=== PATIENT | female | born 1985 | race Caucasian/White ===

== ENCOUNTER 2017-06-24 14:31 | Emergency (ER) | payer MEDICAID ==
[2017-06-24 15:23] LABS: BASOPHILS 0.1 % (0-2); HEMATOCRIT 41.9 % (36.0-48.0); HEMOGLOBIN 13.9 g/dL (12-16); IMMATURE GRANULOCYTES 0.1 % (0-5); LYMPHOCYTES 30.4 % (15-50); MCH 30.9 pg (26.0-34.0); MCHC 33.2 g/dL (31.0-37.0); MCV 93.1 fL (80.0-100.0); MEAN PLATELET VOLUME 11.6 fL (7.4-10.4); MONOCYTES 10.5 % (2-11); NEUTROPHILS 56.9 % (40-80); PLATELET COUNT 255 10x3/uL (130-400); RDW 13.8 % (11.5-14.5); WBC 7.5 10x3/uL (4.8-10.8)
[2017-06-24 15:33] LABS: APPEARANCE CLEAR (CLEAR); BILIRUBIN NEGATIVE (NEGATIVE); COLOR YELLOW (YELLOW); GLUCOSE NEGATIVE (NEGATIVE); KETONE NEGATIVE (NEGATIVE); NITRITE NEGATIVE (NEGATIVE); PROTEIN NEGATIVE (NEGATIVE); UROBILINOGEN NORMAL (NORMAL)
[2017-06-24 15:51] LABS: ALKALINE PHOSPHATASE 73 U/L (46-116); ALT (SGPT) 53 U/L (10-68); BILIRUBIN - TOTAL 0.13 mg/dL (0.2-1.3); CALC OSMOLALITY 282 mosm/kg (275-300); CARBON DIOXIDE 25.8 mmol/L (21.0-32.0); CHLORIDE - SERUM 103 mmol/L (98-107); CREATININE - SERUM 0.9 mg/dL (0.6-1.3); GLUCOSE 108 mg/dL (74-106); POTASSIUM - SERUM 4.6 mmol/L (3.5-5.1); PROTEIN - SERUM 7.6 g/dL (6.4-8.2); SODIUM 141 mmol/L (136-145); UREA NITROGEN 16 mg/dL (7-18); eGFR NON AFRICAN AMERICAN 78 mL/min (90-120)
== END 2017-06-24 17:57 | disposition home or self-care (01) ==
LOC: D.ER 14:31
PROVIDERS: Emergency Medicine
DX: R10.9 Unspecified abdominal pain (principal); R33.9 Retention of urine, unspecified

== ENCOUNTER 2017-10-07 10:19 | Emergency (ER) | payer MEDICAID ==
[2017-10-07 10:47] LABS: BASOPHILS 0.1 % (0-2); EOSINOPHILS 0.6 % (0-7); HEMATOCRIT 40.3 % (36.0-48.0); HEMOGLOBIN 13.6 g/dL (12-16); IMMATURE GRANULOCYTES 0.1 % (0-5); MCH 30.8 pg (26.0-34.0); MCHC 33.7 g/dL (31.0-37.0); MCV 91.4 fL (80.0-100.0); MEAN PLATELET VOLUME 11.2 fL (7.4-10.4); MONOCYTES 7.9 % (2-11); NEUTROPHILS 66.3 % (40-80); PLATELET COUNT 212 10x3/uL (130-400); RBC 4.41 10x6/uL (4.00-5.40); RDW 12.9 % (11.5-14.5); WBC 8.1 10x3/uL (4.8-10.8)
[2017-10-07 10:59] LABS: APPEARANCE HAZY (CLEAR); BILIRUBIN NEGATIVE (NEGATIVE); COLOR YELLOW (YELLOW); GLUCOSE NEGATIVE (NEGATIVE); KETONE NEGATIVE (NEGATIVE); NITRITE NEGATIVE (NEGATIVE); PROTEIN NEGATIVE (NEGATIVE); UROBILINOGEN NORMAL (NORMAL)
[2017-10-07 11:00] LABS: BACTERIA MODERATE /hpf (NONE SEEN); WHITE CELLS - URINE 0-5 /hpf (0-5)
[2017-10-07 11:01] LABS: MUCUS <1+ /lpf (NONE SEEN)
[2017-10-07 11:08] LABS: ALBUMIN 4.2 g/dL (3.4-5.0); ALKALINE PHOSPHATASE 67 U/L (46-116); ALT (SGPT) 23 U/L (10-68); AMYLASE - SERUM 36 U/L (25-115); BILIRUBIN - TOTAL 0.35 mg/dL (0.2-1.3); CALC OSMOLALITY 277 mosm/kg (275-300); CALCIUM 8.7 mg/dL (8.5-10.1); CARBON DIOXIDE 29.6 mmol/L (21.0-32.0); CHLORIDE - SERUM 105 mmol/L (98-107); CREATININE - SERUM 0.7 mg/dL (0.6-1.3); GLUCOSE 88 mg/dL (74-106); LIPASE 78 U/L (73-393); POTASSIUM - SERUM 4.3 mmol/L (3.5-5.1); PROTEIN - SERUM 7.4 g/dL (6.4-8.2); SODIUM 140 mmol/L (136-145); UREA NITROGEN 12 mg/dL (7-18); eGFR NON AFRICAN AMERICAN > 90 mL/min (90-120)
[2017-10-07 12:14] LABS: HCG URINE NEGATIVE (NEGATIVE)
== END 2017-10-07 13:27 | disposition home or self-care (01) ==
LOC: D.ER 10:19
PROVIDERS: Family Medicine
DX: N39.0 Urinary tract infection, site not specified (principal); F17.200 Nicotine dependence, unspecified, uncomplicated

== ENCOUNTER 2018-01-04 16:29 | Emergency (ER) | payer MEDICAID ==
[2018-01-04 17:21] LABS: APPEARANCE CLEAR (CLEAR); BILIRUBIN NEGATIVE (NEGATIVE); COLOR YELLOW (YELLOW); GLUCOSE NEGATIVE (NEGATIVE); KETONE NEGATIVE (NEGATIVE); NITRITE NEGATIVE (NEGATIVE); PROTEIN NEGATIVE (NEGATIVE); SPECIFIC GRAVITY 1.015 (1.005-1.020); UROBILINOGEN NORMAL (NORMAL)
[2018-01-04 17:22] LABS: WHITE CELLS - URINE 0-5 /hpf (0-5)
[2018-01-04 17:23] LABS: BACTERIA FEW /hpf (NONE SEEN); EPITHELIAL CELLS 0-5 /hpf (0-5)
[2018-01-04 17:51] LABS: BASOPHILS 0.1 % (0-2); HEMATOCRIT 38.8 % (36.0-48.0); IMMATURE GRANULOCYTES 0.1 % (0-5); LYMPHOCYTES 30.6 % (15-50); MCHC 33.5 g/dL (31.0-37.0); MCV 92.4 fL (80.0-100.0); MEAN PLATELET VOLUME 11.7 fL (7.4-10.4); MONOCYTES 6.6 % (2-11); NEUTROPHILS 61.6 % (40-80); PLATELET COUNT 251 10x3/uL (130-400); RDW 12.8 % (11.5-14.5); WBC 6.8 10x3/uL (4.8-10.8)
[2018-01-04 18:12] LABS: ALBUMIN 3.8 g/dL (3.4-5.0); ANION GAP 11.4 mmol/L (8-16); BILIRUBIN - TOTAL 0.1 mg/dL (0.2-1.3); CALCIUM 8.7 mg/dL (8.5-10.1); CARBON DIOXIDE 27.6 mmol/L (21.0-32.0); CREATININE - SERUM 1.1 mg/dL (0.6-1.3); PROTEIN - SERUM 6.9 g/dL (6.4-8.2)
[2018-01-04 18:20] LABS: THYROID STIMULATING HORMONE 1.08 uIU/mL (0.36-3.74)
== END 2018-01-04 19:03 | disposition home or self-care (01) ==
LOC: D.ER 16:29
PROVIDERS: Family Medicine; Nurse Practitioner Family
DX: N39.0 Urinary tract infection, site not specified (principal); F32.9 Major depressive disorder, single episode, unspecified; F41.9 Anxiety disorder, unspecified

== ENCOUNTER 2018-01-16 21:21 | Emergency (ER) | payer MEDICAID ==
[2018-01-16 21:58] LABS: HCG URINE NEGATIVE (NEGATIVE)
[2018-01-16 22:00] LABS: APPEARANCE CLEAR (CLEAR); BILIRUBIN NEGATIVE (NEGATIVE); COLOR YELLOW (YELLOW); GLUCOSE NEGATIVE (NEGATIVE); KETONE NEGATIVE (NEGATIVE); NITRITE NEGATIVE (NEGATIVE); PROTEIN NEGATIVE (NEGATIVE); SPECIFIC GRAVITY 1.015 (1.005-1.020); UROBILINOGEN NORMAL (NORMAL)
[2018-01-16 22:04] LABS: BACTERIA FEW /hpf (NONE SEEN); WHITE CELLS - URINE 0-5 /hpf (0-5)
== END 2018-01-16 22:41 | disposition home or self-care (01) ==
LOC: D.ER 21:21
PROVIDERS: Family Medicine
DX: N39.0 Urinary tract infection, site not specified (principal); R10.2 Pelvic and perineal pain

== ENCOUNTER 2018-01-19 17:01 | Emergency (ER) | payer MEDICAID ==
[2018-01-19 17:34] LABS: BASOPHILS 0.3 % (0-2); EOSINOPHILS 1.6 % (0-7); HEMATOCRIT 41.7 % (36.0-48.0); HEMOGLOBIN 14.2 g/dL (12-16); IMMATURE GRANULOCYTES 0.1 % (0-5); LYMPHOCYTES 37.1 % (15-50); MCH 31.3 pg (26.0-34.0); MCHC 34.1 g/dL (31.0-37.0); MCV 92.1 fL (80.0-100.0); MEAN PLATELET VOLUME 12.2 fL (7.4-10.4); MONOCYTES 9.7 % (2-11); NEUTROPHILS 51.2 % (40-80); PLATELET COUNT 205 10x3/uL (130-400); RBC 4.53 10x6/uL (4.00-5.40)
[2018-01-19 17:41] LABS: APPEARANCE CLEAR (CLEAR); BILIRUBIN NEGATIVE (NEGATIVE); COLOR YELLOW (YELLOW); GLUCOSE NEGATIVE (NEGATIVE); KETONE NEGATIVE (NEGATIVE); NITRITE NEGATIVE (NEGATIVE); PROTEIN NEGATIVE (NEGATIVE); UROBILINOGEN NORMAL (NORMAL)
[2018-01-19 17:42] LABS: EPITHELIAL CELLS 0-5 /hpf (0-5)
[2018-01-19 17:44] LABS: BACTERIA MANY /hpf (NONE SEEN); SPERMATOZOA OCC /hpf (NONE SEEN); YEAST <1+ /hpf (NONE SEEN)
[2018-01-19 17:58] LABS: ALBUMIN 4.1 g/dL (3.4-5.0); ALKALINE PHOSPHATASE 73 U/L (46-116); ALT (SGPT) 16 U/L (10-68); BILIRUBIN - TOTAL 0.18 mg/dL (0.2-1.3); CALC OSMOLALITY 282 mosm/kg (275-300); CALCIUM 8.9 mg/dL (8.5-10.1); CARBON DIOXIDE 28.8 mmol/L (21.0-32.0); CHLORIDE - SERUM 105 mmol/L (98-107); CREATININE - SERUM 0.9 mg/dL (0.6-1.3); GLUCOSE 84 mg/dL (74-106); POTASSIUM - SERUM 3.8 mmol/L (3.5-5.1); PROTEIN - SERUM 7.5 g/dL (6.4-8.2); SODIUM 142 mmol/L (136-145); UREA NITROGEN 16 mg/dL (7-18); eGFR NON AFRICAN AMERICAN 78 mL/min (90-120)
[2018-01-19 18:05] LABS: HCG SERUM NEGATIVE (NEGATIVE)
== END 2018-01-19 20:42 | disposition home or self-care (01) ==
LOC: D.ER 17:01
PROVIDERS: Emergency Medicine; Nurse Practitioner Family
DX: N39.0 Urinary tract infection, site not specified (principal); F17.200 Nicotine dependence, unspecified, uncomplicated

== ENCOUNTER 2018-01-21 22:44 | Emergency (ER) | payer MEDICAID | END 2018-01-22 00:11 | disposition home or self-care (01) | LOC: D.ER 22:44 | DX: S60.221A Contusion of right hand, initial encounter (principal); W22.01XA Walked into wall, initial encounter; Y93.89 Activity, other specified; Y92.019 Unspecified place in single-family (private) house as the place of occurrence of the external cause; S63.91XA Sprain of unspecified part of right wrist and hand, initial encounter ==

== ENCOUNTER 2018-02-28 17:03 | Emergency (ER) | payer MEDICAID ==
[~2018-02-28] VITALS: Ht 157.5 cm; Wt 54.5 kg
[2018-02-28 17:37] VITALS: Ht 157.5 cm; Wt 54.5 kg
[2018-02-28 18:13] LABS: APPEARANCE CLEAR (CLEAR); BILIRUBIN NEGATIVE (NEGATIVE); COLOR YELLOW (YELLOW); GLUCOSE NEGATIVE (NEGATIVE); KETONE NEGATIVE (NEGATIVE); NITRITE NEGATIVE (NEGATIVE); PROTEIN NEGATIVE (NEGATIVE); SPECIFIC GRAVITY 1.025 (1.005-1.020); UROBILINOGEN NORMAL (NORMAL); WHITE CELLS - URINE 0-5 /hpf (0-5)
[2018-02-28 18:15] LABS: BACTERIA FEW /hpf (NONE SEEN); MUCUS <1+ /lpf (NONE SEEN)
[2018-02-28 18:19] LABS: BASOPHILS 0.2 % (0-2); EOSINOPHILS 0.8 % (0-7); HEMATOCRIT 44.7 % (36.0-48.0); HEMOGLOBIN 15.3 g/dL (12-16); IMMATURE GRANULOCYTES 0.1 % (0-5); LYMPHOCYTES 33.4 % (15-50); MCH 31.3 pg (26.0-34.0); MCHC 34.2 g/dL (31.0-37.0); MCV 91.4 fL (80.0-100.0); MEAN PLATELET VOLUME 11.8 fL (7.4-10.4); MONOCYTES 5.5 % (2-11); PLATELET COUNT 229 10x3/uL (130-400); RBC 4.89 10x6/uL (4.00-5.40); RDW 13.6 % (11.5-14.5); WBC 8.9 10x3/uL (4.8-10.8)
[2018-02-28 18:52] LABS: ALBUMIN 4.4 g/dL (3.4-5.0); ANION GAP 13.8 mmol/L (8-16); BILIRUBIN - TOTAL 0.29 mg/dL (0.2-1.3); CALCIUM 9.3 mg/dL (8.5-10.1); CARBON DIOXIDE 25.2 mmol/L (21.0-32.0); PROTEIN - SERUM 7.9 g/dL (6.4-8.2)
[2018-02-28 22:06] LABS: HCG URINE NEGATIVE (NEGATIVE)
[2018-02-28] MEDS ORDERED: FLAGYL500 MG PO (22:48)
[2018-02-28] MEDS ORDERED: VIBRAMYCIN 100100 MG PO (22:48)
[2018-02-28] MEDS ORDERED: ZOFRAN4 MG PO (22:49)
[2018-03-01 01:07] VITALS: BP 114/72
== END 2018-03-01 00:11 | disposition home or self-care (01) ==
LOC: D.ER 17:03
PROVIDERS: Emergency Medicine; Family Medicine
DX: N39.0 Urinary tract infection, site not specified (principal); N76.0 Acute vaginitis; B96.89 Other specified bacterial agents as the cause of diseases classified elsewhere; R11.2 Nausea with vomiting, unspecified; F17.200 Nicotine dependence, unspecified, uncomplicated

== ENCOUNTER 2018-04-17 11:38 | Emergency (ER) | payer MEDICAID ==
[~2018-04-17] VITALS: Ht 157.5 cm; Wt 54.5 kg
[~2018-04-17 11:38] MED LIST: FLAGYL500 MG PO; VIBRAMYCIN 100100 MG PO; ZOFRAN4 MG PO
[2018-04-17 11:52] VITALS: Ht 157.5 cm; Wt 54.5 kg
[2018-04-17 14:25] LABS: APPEARANCE HAZY (CLEAR); BILIRUBIN NEGATIVE (NEGATIVE); COLOR YELLOW (YELLOW); GLUCOSE NEGATIVE (NEGATIVE); KETONE NEGATIVE (NEGATIVE); NITRITE NEGATIVE (NEGATIVE); PROTEIN NEGATIVE (NEGATIVE); UROBILINOGEN NORMAL (NORMAL)
[2018-04-17 14:35] LABS: BACTERIA MODERATE /hpf (NONE SEEN); EPITHELIAL CELLS 0-5 /hpf (0-5); MUCUS >1+ /lpf (NONE SEEN); WHITE CELLS - URINE 0-5 /hpf (0-5)
[2018-04-17 14:36] LABS: CALCIUM OXALATE CRYSTALS 0-5 /hpf (NONE SEEN); SPERMATOZOA OCC /hpf (NONE SEEN)
[2018-04-17 15:13] LABS: HCG URINE NEGATIVE (NEGATIVE)
[2018-04-17] MEDS ORDERED: DOXYCYCLINE HY100 M2 PO (16:45)
[2018-04-17] MEDS ORDERED: NORCO 7.5/325 T1 TA1 PO (16:45)
[2018-04-17 16:59] VITALS: BP 109/67
== END 2018-04-17 17:00 | disposition home or self-care (01) ==
LOC: D.ER 11:38
PROVIDERS: Family Medicine
DX: L73.2 Hidradenitis suppurativa (principal); R30.0 Dysuria; R10.9 Unspecified abdominal pain; N20.1 Calculus of ureter

== ENCOUNTER 2018-07-08 22:19 | Emergency (ER) | payer SELFPAY ==
[~2018-07-08] VITALS: Ht 157.5 cm; Wt 54.5 kg
[~2018-07-08 22:19] MED LIST changes: +DOXYCYCLINE HY100 M2 PO; +NORCO 7.5/325 T1 TA1 PO
[2018-07-08 22:26] VITALS: Ht 157.5 cm; Wt 54.5 kg
[2018-07-08 22:55] LABS: APPEARANCE CLEAR (CLEAR); BACTERIA FEW /hpf (NONE SEEN); BILIRUBIN NEGATIVE (NEGATIVE); COLOR YELLOW (YELLOW); EPITHELIAL CELLS OCC /hpf (0-5); GLUCOSE NEGATIVE (NEGATIVE); KETONE NEGATIVE (NEGATIVE); NITRITE NEGATIVE (NEGATIVE); PROTEIN NEGATIVE (NEGATIVE); RED CELLS - URINE 0-5 /hpf (0-5); UROBILINOGEN NORMAL (NORMAL); WHITE CELLS - URINE OCC /hpf (0-5)
[2018-07-08 22:56] LABS: HCG URINE NEGATIVE (NEGATIVE)
[2018-07-08 23:17] LABS: BASOPHILS 0.2 % (0-2); EOSINOPHILS 0.4 % (0-7); HEMATOCRIT 40.9 % (36.0-48.0); HEMOGLOBIN 13.6 g/dL (12-16); IMMATURE GRANULOCYTES 0.2 % (0-5); LYMPHOCYTES 26.8 % (15-50); MCHC 33.3 g/dL (31.0-37.0); MCV 93.2 fL (80.0-100.0); MEAN PLATELET VOLUME 11.7 fL (7.4-10.4); MONOCYTES 8.6 % (2-11); NEUTROPHILS 63.8 % (40-80); PLATELET COUNT 273 10x3/uL (130-400); RBC 4.39 10x6/uL (4.00-5.40); RDW 13.6 % (11.5-14.5); WBC 9.6 10x3/uL (4.8-10.8)
[2018-07-08 23:26] LABS: ALBUMIN 3.5 g/dL (3.4-5.0); ALKALINE PHOSPHATASE 80 U/L (46-116); ALT (SGPT) 19 U/L (10-68); CALC OSMOLALITY 281 mosm/kg (275-300); CALCIUM 8.6 mg/dL (8.5-10.1); CARBON DIOXIDE 28.9 mmol/L (21.0-32.0); CHLORIDE - SERUM 105 mmol/L (98-107); CREATININE - SERUM 0.8 mg/dL (0.6-1.3); GLUCOSE 102 mg/dL (74-106); POTASSIUM - SERUM 4.1 mmol/L (3.5-5.1); PROTEIN - SERUM 6.9 g/dL (6.4-8.2); SODIUM 141 mmol/L (136-145); UREA NITROGEN 14 mg/dL (7-18); eGFR NON AFRICAN AMERICAN 89 mL/min (90-120)
[2018-07-08 23:27] LABS: BILIRUBIN - TOTAL 0.06 mg/dL (0.2-1.3)
[2018-07-09] MEDS ORDERED: MIRALAX17 GM PO (00:48)
[2018-07-09 01:34] VITALS: BP 121/81
== END 2018-07-09 01:34 | disposition home or self-care (01) ==
LOC: D.ER 22:19
PROVIDERS: Emergency Medicine
DX: K59.00 Constipation, unspecified (principal); R10.32 Left lower quadrant pain; F17.200 Nicotine dependence, unspecified, uncomplicated; R11.0 Nausea

== ENCOUNTER 2018-08-15 11:22 | Inpatient (IN) | payer MEDICAID ==
[~2018-08-15] VITALS: Ht 154.9 cm; Wt 52.2 kg
--- NOTE | ~2018-08-15 | EC ---
PATIENT:ROB DICKINSON DATE OF SERVICE: 08/15/18 SEX: F MEDICAL RECORD: [id number] DATE OF : [birth year] LOCATION:D.M3 D.120 AGE OF PATIENT: 33 ADMISSION DATE: 08/15/18 REFERRING PHYSICIAN: INTERPRETING PHYSICIAN: STACI SOARES MD ECHOCARDIOGRAM REPORT ECHO CHARGES 4 ECHO COMPLETE Date: 08/16/18 CLINICAL DIAGNOSIS: CELLULITIS L HAND/SEPSIS ASSESS FOR VEGATATIONS ECHOCARDIOGRAPHIC MEASUREMENTS (adult normal given) AC root (d.<3.7cm) 3.4 cm LV Septum d (<1.2 cm> 1.1 cm Valve Excursion 1.7 cm LV Septum (systole) 1.4 cm Left Atria (s.<4.0cm> 3.0 cm LVPW d(<1.2cm) 1.2 cm RV (d.<2.3cm) 2.6 cm LVPW (sytole) 1.4 cm LV diastole(<5.6CM) 3.6 cm MV E-F(>70mm/sec) cm LV systole 2.3 cm LVOT Diameter 1.7 cm MV exc.(>10mm) 1.3 cm Est.ejection fraction (50-75%) % DOPPLER: LVIT cm/sec A cm/sec E cm/sec LA cm/sec RVSP 29 mmHg LVOT 111 cm/sec AOP1/2T m/s Asc. Ao 135 cm/sec RVOT 108 cm/sec RA cm/sec PA 127 cm/sec AV Gradient Peak 7.32 mmHg AV Mean 3.55 mmHg AV Area 1.8 cm MV Gradient Peak 7.08 mmHg MV Mean 2.94 mmHg MV Area cm COMMENTS: Senior Cyber Intelligence Analyst: Brock HALE System Support Developer: 3 Dr. Galdamez TAPE# PACS Pericardial Effusion N DATE OF SERVICE: 08/16/2018 ECHOCARDIOGRAM FINDINGS: 1. Left ventricular chamber size is within normal limits. Left ventricular systolic function is normal. Overall ejection fraction estimated at 60%. 2. Left atrium, right atrium, and right ventricle chamber sizes are within normal limits. 3. Valvular structures have normal structure and motion. ECHOCARDIOGRAM REPORT [id number] ROB DICKINSON 4. Doppler interrogation reveals no significant valvular insufficiency or stenosis and pulmonary systolic pressure is normal estimated at 29 mmHg. 5. No evidence of pericardial effusion or left ventricular thrombus. 6. No evidence of vegetative endocarditis. TRANSINT:[id number] Voice Confirmation ID: [id number] DOCUMENT ID: [id number] STACI SOARES MD at 1228 CC: [id number] DICTATION DATE: 08/16/18 1631 [employer] SUPERVISOR: 08/16/18 191 ADM IN [facility] [address] [id number]
[~2018-08-15 11:22] MED LIST changes: +MIRALAX17 GM PO
[2018-08-15 13:22] LABS: HEMATOCRIT 39.8 % (36.0-48.0); HEMOGLOBIN 13.8 g/dL (12-16); MCH 30.5 pg (26.0-34.0); MCHC 34.7 g/dL (31.0-37.0); MCV 88.1 fL (80.0-100.0); MEAN PLATELET VOLUME 11.5 fL (7.4-10.4); PLATELET COUNT 252 10x3/uL (130-400); RBC 4.52 10x6/uL (4.00-5.40); RDW 13.5 % (11.5-14.5); WBC 21.9 10x3/uL (4.8-10.8)
[2018-08-15 13:26] LABS: ALBUMIN 3.8 g/dL (3.4-5.0); ALKALINE PHOSPHATASE 75 U/L (46-116); ALT (SGPT) 22 U/L (10-68); BILIRUBIN - TOTAL 0.51 mg/dL (0.2-1.3); CALC OSMOLALITY 276 mosm/kg (275-300); CARBON DIOXIDE 23.3 mmol/L (21.0-32.0); CHLORIDE - SERUM 100 mmol/L (98-107); CREATININE - SERUM 0.8 mg/dL (0.6-1.3); GLUCOSE 85 mg/dL (74-106); PROTEIN - SERUM 7.9 g/dL (6.4-8.2); SODIUM 138 mmol/L (136-145); UREA NITROGEN 17 mg/dL (7-18); eGFR NON AFRICAN AMERICAN 89 mL/min (90-120)
[2018-08-15 13:27] LABS: POTASSIUM - SERUM 4.1 mmol/L (3.5-5.1)
[2018-08-15 13:32] LABS: APPEARANCE CLEAR (CLEAR); BILIRUBIN NEGATIVE (NEGATIVE); COLOR YELLOW (YELLOW); GLUCOSE NEGATIVE (NEGATIVE); KETONE SMALL mg/dL (NEGATIVE); NITRITE NEGATIVE (NEGATIVE); PROTEIN 1+ mg/dL (NEGATIVE); UROBILINOGEN NORMAL (NORMAL)
[2018-08-15 13:33] LABS: EPITHELIAL CELLS 0-5 /hpf (0-5); WHITE CELLS - URINE 0-5 /hpf (0-5)
[2018-08-15 13:40] LABS: LYMPHOCYTES 13 % (15-50); MONOCYTES 1 % (2-11); NEUTROPHILS 81 % (40-80); PLATELET ESTIMATE NORMAL; PLATELET MORPHOLOGY NORMAL PLT MORPH
[2018-08-15 14:27] LABS: HCG SERUM NEGATIVE (NEGATIVE)
[2018-08-15] MEDS ORDERED: XANAX2 MG PO (17:01)
[2018-08-15] MEDS ORDERED: REMERON15 MG PO (17:04)
[2018-08-15] MEDS ORDERED: CELEXA20 MG PO (17:06)
[2018-08-15 17:27] VITALS: BP 133/77
[2018-08-15 18:51] LABS: CKMB 1.2 U/L (0.0-3.6); CREATINE KINASE 88 UL (21-215)
[2018-08-15 18:55] LABS: TROPONIN-I < 0.017 ng/mL (0.000-0.060)
[2018-08-15 20:37] VITALS: BP 110/72
[2018-08-15 21:43] LABS: UDS - AMPHET POSITIVE QUAL (NEGATIVE); UDS - BARB NEGATIVE QUAL (NEGATIVE); UDS - BENZO NEGATIVE QUAL (NEGATIVE); UDS - COCAINE NEGATIVE QUAL (NEGATIVE); UDS - OPIATE POSITIVE QUAL (NEGATIVE); UDS - PCP NEGATIVE QUAL (NEGATIVE); UDS - THC POSITIVE QUAL (NEGATIVE)
[2018-08-16] VITALS: BP 105/61
[2018-08-16 04:00] VITALS: BP 105/68
[2018-08-16 09:52] VITALS: BP 115/58
[2018-08-16 10:40] VITALS: BMI 21.7
[2018-08-16 11:49] LABS: BASOPHILS 0.1 % (0-2); EOSINOPHILS 0.4 % (0-7); HEMATOCRIT 35.7 % (36.0-48.0); IMMATURE GRANULOCYTES 0.2 % (0-5); LYMPHOCYTES 11.8 % (15-50); MCH 30.5 pg (26.0-34.0); MCHC 33.6 g/dL (31.0-37.0); MCV 90.8 fL (80.0-100.0); MEAN PLATELET VOLUME 11.8 fL (7.4-10.4); MONOCYTES 4.7 % (2-11); NEUTROPHILS 82.8 % (40-80); PLATELET COUNT 198 10x3/uL (130-400); RBC 3.93 10x6/uL (4.00-5.40); RDW 13.7 % (11.5-14.5); WBC 8.5 10x3/uL (4.8-10.8)
[2018-08-16 11:51] LABS: ALKALINE PHOSPHATASE 73 U/L (46-116); BILIRUBIN - TOTAL 0.24 mg/dL (0.2-1.3); CALCIUM 7.7 mg/dL (8.5-10.1); CARBON DIOXIDE 28.4 mmol/L (21.0-32.0); CHLORIDE - SERUM 104 mmol/L (98-107); CREATININE - SERUM 0.8 mg/dL (0.6-1.3); GLUCOSE 114 mg/dL (74-106); POTASSIUM - SERUM 3.9 mmol/L (3.5-5.1); SODIUM 141 mmol/L (136-145); eGFR NON AFRICAN AMERICAN 89 mL/min (90-120)
[2018-08-16 11:52] LABS: ALBUMIN 2.8 g/dL (3.4-5.0); ALT (SGPT) 88 U/L (10-68); CALC OSMOLALITY 280 mosm/kg (275-300); PROTEIN - SERUM 5.9 g/dL (6.4-8.2); UREA NITROGEN 9 mg/dL (7-18)
[2018-08-16 13:28] VITALS: BP 132/91
[2018-08-16 17:00] VITALS: Ht 154.9 cm; Wt 52.2 kg
[2018-08-16 17:08] VITALS: BP 128/62
[2018-08-16 20:00] VITALS: BP 121/76
[2018-08-17] VITALS: BP 105/63
[2018-08-17 05:16] VITALS: BP 82/43
[2018-08-17 06:18] LABS: BASOPHILS 0.3 % (0-2); EOSINOPHILS 1.2 % (0-7); HEMATOCRIT 41.3 % (36.0-48.0); HEMOGLOBIN 13.5 g/dL (12-16); IMMATURE GRANULOCYTES 0.2 % (0-5); LYMPHOCYTES 25.7 % (15-50); MCH 30.3 pg (26.0-34.0); MCHC 32.7 g/dL (31.0-37.0); MCV 92.6 fL (80.0-100.0); MEAN PLATELET VOLUME 12.1 fL (7.4-10.4); MONOCYTES 7.1 % (2-11); NEUTROPHILS 65.5 % (40-80); PLATELET COUNT 195 10x3/uL (130-400); RBC 4.46 10x6/uL (4.00-5.40); RDW 13.9 % (11.5-14.5); WBC 6.5 10x3/uL (4.8-10.8)
[2018-08-17 06:28] LABS: ALBUMIN 2.5 g/dL (3.4-5.0); ALKALINE PHOSPHATASE 102 U/L (46-116); BILIRUBIN - TOTAL 0.16 mg/dL (0.2-1.3); CALC OSMOLALITY 289 mosm/kg (275-300); CALCIUM 7.7 mg/dL (8.5-10.1); CHLORIDE - SERUM 109 mmol/L (98-107); CREATININE - SERUM 0.8 mg/dL (0.6-1.3); GLUCOSE 95 mg/dL (74-106); MAGNESIUM - SERUM 1.8 mg/dL (1.8-2.4); PROTEIN - SERUM 5.8 g/dL (6.4-8.2); SODIUM 146 mmol/L (136-145); UREA NITROGEN 11 mg/dL (7-18); eGFR NON AFRICAN AMERICAN 89 mL/min (90-120)
[2018-08-17 06:30] LABS: ALT (SGPT) 188 U/L (10-68)
[2018-08-17 07:58] VITALS: BP 107/74
[2018-08-17 11:37] VITALS: BP 143/82
[2018-08-17 12:45] LABS: CKMB 0.6 U/L (0.0-3.6); CREATINE KINASE 56 UL (21-215); TROPONIN-I < 0.017 ng/mL (0.000-0.060)
[2018-08-17 16:50] VITALS: BP 136/79
[2018-08-17 17:21] LABS: CKMB 0.2 U/L (0.0-3.6); CREATINE KINASE 36 UL (21-215)
[2018-08-17 17:22] LABS: TROPONIN-I < 0.017 ng/mL (0.000-0.060)
[2018-08-17 20:24] VITALS: BP 143/74
[2018-08-18 00:35] LABS: CKMB 0.2 U/L (0.0-3.6); CREATINE KINASE 32 UL (21-215)
[2018-08-18 00:39] LABS: TROPONIN-I < 0.017 ng/mL (0.000-0.060)
[2018-08-18 00:58] VITALS: BP 115/67
[2018-08-18 04:00] VITALS: BP 127/83
[2018-08-18 05:49] LABS: BASOPHILS 0.4 % (0-2); EOSINOPHILS 5.8 % (0-7); HEMATOCRIT 39.1 % (36.0-48.0); HEMOGLOBIN 12.7 g/dL (12-16); IMMATURE GRANULOCYTES 0.2 % (0-5); LYMPHOCYTES 47.8 % (15-50); MCHC 32.5 g/dL (31.0-37.0); MCV 92.2 fL (80.0-100.0); MEAN PLATELET VOLUME 12.2 fL (7.4-10.4); NEUTROPHILS 35.8 % (40-80); PLATELET COUNT 196 10x3/uL (130-400); RBC 4.24 10x6/uL (4.00-5.40); RDW 13.8 % (11.5-14.5)
[2018-08-18 05:55] LABS: WBC 4.7 10x3/uL (4.8-10.8)
[2018-08-18 06:48] LABS: ALBUMIN 2.3 g/dL (3.4-5.0); ALKALINE PHOSPHATASE 94 U/L (46-116); ALT (SGPT) 180 U/L (10-68); CALC OSMOLALITY 285 mosm/kg (275-300); CALCIUM 8.4 mg/dL (8.5-10.1); CARBON DIOXIDE 28.9 mmol/L (21.0-32.0); CHLORIDE - SERUM 107 mmol/L (98-107); CREATININE - SERUM 0.6 mg/dL (0.6-1.3); GLUCOSE 90 mg/dL (74-106); MAGNESIUM - SERUM 1.9 mg/dL (1.8-2.4); POTASSIUM - SERUM 3.6 mmol/L (3.5-5.1); SODIUM 144 mmol/L (136-145); UREA NITROGEN 11 mg/dL (7-18); eGFR NON AFRICAN AMERICAN > 90 mL/min (90-120)
[2018-08-18 08:15] VITALS: BP 116/56
[2018-08-18 11:31] VITALS: BP 112/61
[2018-08-18 17:02] VITALS: BP 108/49
[2018-08-19 04:23] LABS: BASOPHILS 0.3 % (0-2); EOSINOPHILS 5.7 % (0-7); HEMOGLOBIN 11.9 g/dL (12-16); IMMATURE GRANULOCYTES 0.2 % (0-5); LYMPHOCYTES 48.8 % (15-50); MCH 29.8 pg (26.0-34.0); MCHC 32.2 g/dL (31.0-37.0); MCV 92.5 fL (80.0-100.0); MEAN PLATELET VOLUME 12.2 fL (7.4-10.4); MONOCYTES 11.1 % (2-11); NEUTROPHILS 33.9 % (40-80); PLATELET COUNT 203 10x3/uL (130-400); RDW 13.4 % (11.5-14.5)
[2018-08-19 04:29] LABS: WBC 6.3 10x3/uL (4.8-10.8)
[2018-08-19 04:49] LABS: ALBUMIN 2.2 g/dL (3.4-5.0); ALKALINE PHOSPHATASE 102 U/L (46-116); ALT (SGPT) 139 U/L (10-68); CALC OSMOLALITY 287 mosm/kg (275-300); CALCIUM 8.2 mg/dL (8.5-10.1); CARBON DIOXIDE 29.6 mmol/L (21.0-32.0); CHLORIDE - SERUM 108 mmol/L (98-107); CREATININE - SERUM 0.7 mg/dL (0.6-1.3); GLUCOSE 84 mg/dL (74-106); MAGNESIUM - SERUM 1.6 mg/dL (1.8-2.4); POTASSIUM - SERUM 3.7 mmol/L (3.5-5.1); PROTEIN - SERUM 5.8 g/dL (6.4-8.2); SODIUM 145 mmol/L (136-145); UREA NITROGEN 13 mg/dL (7-18); eGFR NON AFRICAN AMERICAN > 90 mL/min (90-120)
[2018-08-19 07:51] VITALS: BP 148/63
[2018-08-19 11:32] VITALS: BP 152/68
[2018-08-19] MEDS ORDERED: BACTRIM DS1 TAB PO (14:24)
[2018-08-20 17:08] LABS: AEROBE ID Final report (())
== END 2018-08-19 16:42 | disposition home or self-care (01) | DRG 603 ==
LOC: D.ER 11:22 → D.M3 14:51
PROVIDERS: Family Medicine; Family Medicine Adult Medicine
DX: L03.114 Cellulitis of left upper limb (principal); F32.9 Major depressive disorder, single episode, unspecified; F15.90 Other stimulant use, unspecified, uncomplicated; F12.90 Cannabis use, unspecified, uncomplicated; F11.90 Opioid use, unspecified, uncomplicated; Z72.0 Tobacco use

== ENCOUNTER 2018-09-20 14:56 | Emergency (ER) | payer MEDICAID ==
[~2018-09-20] VITALS: Ht 157.5 cm; Wt 56.9 kg
[~2018-09-20 14:56] MED LIST changes: +BACTRIM DS1 TAB PO; +CELEXA20 MG PO; +REMERON15 MG PO; +XANAX2 MG PO
[2018-09-20 15:13] VITALS: BP 138/85; Ht 157.5 cm; Wt 56.9 kg
[2018-09-20 17:02] LABS: BASOPHILS 0.2 % (0-2); EOSINOPHILS 1.7 % (0-7); HEMATOCRIT 35.6 % (36.0-48.0); HEMOGLOBIN 11.9 g/dL (12-16); IMMATURE GRANULOCYTES 0.3 % (0-5); LYMPHOCYTES 30.9 % (15-50); MCH 29.8 pg (26.0-34.0); MCHC 33.4 g/dL (31.0-37.0); MCV 89.2 fL (80.0-100.0); MEAN PLATELET VOLUME 11.3 fL (7.4-10.4); MONOCYTES 8.3 % (2-11); NEUTROPHILS 58.6 % (40-80); PLATELET COUNT 237 10x3/uL (130-400); RBC 3.99 10x6/uL (4.00-5.40); RDW 14.5 % (11.5-14.5); WBC 12.1 10x3/uL (4.8-10.8)
[2018-09-20 17:20] LABS: ALKALINE PHOSPHATASE 66 U/L (46-116); ALT (SGPT) 37 U/L (10-68); BILIRUBIN - TOTAL 0.09 mg/dL (0.2-1.3); CALC OSMOLALITY 281 mosm/kg (275-300); CALCIUM 8.1 mg/dL (8.5-10.1); CARBON DIOXIDE 26.9 mmol/L (21.0-32.0); CHLORIDE - SERUM 109 mmol/L (98-107); CREATININE - SERUM 0.7 mg/dL (0.6-1.3); GLUCOSE 82 mg/dL (74-106); POTASSIUM - SERUM 3.8 mmol/L (3.5-5.1); PROTEIN - SERUM 6.3 g/dL (6.4-8.2); SODIUM 143 mmol/L (136-145); UREA NITROGEN 7 mg/dL (7-18); eGFR NON AFRICAN AMERICAN > 90 mL/min (90-120)
[2018-09-20 17:23] LABS: AMYLASE - SERUM 51 U/L (25-115); LIPASE 141 U/L (73-393); TROPONIN-I < 0.017 ng/mL (0.000-0.060)
[2018-09-20 17:28] LABS: APPEARANCE HAZY (CLEAR); BILIRUBIN NEGATIVE (NEGATIVE); COLOR YELLOW (YELLOW); GLUCOSE NEGATIVE (NEGATIVE); KETONE NEGATIVE (NEGATIVE); NITRITE NEGATIVE (NEGATIVE); PROTEIN NEGATIVE (NEGATIVE); UROBILINOGEN NORMAL (NORMAL)
[2018-09-20 17:29] LABS: RED CELLS - URINE 0-5 /hpf (0-5); WHITE CELLS - URINE 25-50 /hpf (0-5)
[2018-09-20 17:40] LABS: BACTERIA MANY /hpf (NONE SEEN)
[2018-09-20 17:41] LABS: HCG URINE NEGATIVE (NEGATIVE)
== END 2018-09-20 19:15 | disposition left against medical advice (07) ==
LOC: D.ER 14:56
PROVIDERS: Emergency Medicine
DX: R10.30 Lower abdominal pain, unspecified (principal)

== ENCOUNTER 2019-01-29 18:53 | Emergency (ER) | payer MEDICAID ==
[~2019-01-29] VITALS: Ht 157.5 cm; Wt 64.5 kg
[2019-01-29 18:59] VITALS: Ht 157.5 cm; Wt 64.5 kg
[2019-01-29 19:23] LABS: BASOPHILS 0.2 % (0-2); HEMATOCRIT 38.9 % (36.0-48.0); HEMOGLOBIN 13.1 g/dL (12-16); IMMATURE GRANULOCYTES 0.3 % (0-5); MCH 30.2 pg (26.0-34.0); MCHC 33.7 g/dL (31.0-37.0); MCV 89.6 fL (80.0-100.0); MEAN PLATELET VOLUME 11.8 fL (7.4-10.4); MONOCYTES 6.9 % (2-11); NEUTROPHILS 58.6 % (40-80); PLATELET COUNT 249 10x3/uL (130-400); RBC 4.34 10x6/uL (4.00-5.40); RDW 13.4 % (11.5-14.5); WBC 10.8 10x3/uL (4.8-10.8)
[2019-01-29 19:24] LABS: APPEARANCE CLEAR (CLEAR); BILIRUBIN NEGATIVE (NEGATIVE); COLOR YELLOW (YELLOW); GLUCOSE NEGATIVE (NEGATIVE); KETONE NEGATIVE (NEGATIVE); NITRITE NEGATIVE (NEGATIVE); PROTEIN NEGATIVE (NEGATIVE); SPECIFIC GRAVITY 1.015 (1.005-1.020); UROBILINOGEN NORMAL (NORMAL)
[2019-01-29 19:28] LABS: BACTERIA FEW /hpf (NONE SEEN); EPITHELIAL CELLS 0-5 /hpf (0-5); WHITE CELLS - URINE 0-5 /hpf (0-5)
[2019-01-29 19:29] LABS: AMORPHOUS SEDIMENT <1+ /lpf (NONE SEEN)
[2019-01-29 19:41] LABS: ALBUMIN 3.9 g/dL (3.4-5.0); ALKALINE PHOSPHATASE 77 U/L (46-116); ALT (SGPT) 26 U/L (10-68); CALC OSMOLALITY 276 mosm/kg (275-300); CALCIUM 8.8 mg/dL (8.5-10.1); CARBON DIOXIDE 28.9 mmol/L (21.0-32.0); CHLORIDE - SERUM 103 mmol/L (98-107); CREATININE - SERUM 0.9 mg/dL (0.6-1.3); GLUCOSE 82 mg/dL (74-106); PROTEIN - SERUM 7.1 g/dL (6.4-8.2); SODIUM 139 mmol/L (136-145); UREA NITROGEN 13 mg/dL (7-18); eGFR NON AFRICAN AMERICAN 77 mL/min (90-120)
[2019-01-29 19:51] LABS: AMYLASE - SERUM 43 U/L (25-115); LIPASE 100 U/L (73-393)
[2019-01-29 19:52] LABS: TROPONIN-I < 0.017 ng/mL (0.000-0.060)
[2019-01-29] MEDS ORDERED: TALWIN NX1 TAB PO (20:29)
[2019-01-29] MEDS ORDERED: ZOFRAN ODT4 MG/UDTAB PO (20:29)
[2019-01-29 20:50] LABS: HCG URINE NEGATIVE (NEGATIVE)
[2019-01-29] MEDS ORDERED: MIRALAX17 GM PO (21:00)
[2019-01-29 21:35] VITALS: BP 119/80
== END 2019-01-29 21:35 | disposition home or self-care (01) ==
LOC: D.ER 18:53
PROVIDERS: Family Medicine
DX: R10.9 Unspecified abdominal pain (principal); K59.00 Constipation, unspecified; N83.202 Unspecified ovarian cyst, left side

== ENCOUNTER 2019-01-31 10:11 | Emergency (ER) | payer MEDICAID ==
[~2019-01-31] VITALS: Ht 157.5 cm; Wt 65.9 kg
[~2019-01-31 10:11] MED LIST changes: +TALWIN NX1 TAB PO; +ZOFRAN ODT4 MG/UDTAB PO
[2019-01-31 10:21] VITALS: Ht 157.5 cm; Wt 65.9 kg
[2019-01-31] MEDS ORDERED: REMERON30 MG PO (10:25)
[2019-01-31] MEDS ORDERED: CELEXA20 MG PO (10:26)
[2019-01-31] MEDS ORDERED: BUSPAR 15 MG TA15 MG PO (10:26)
[2019-01-31 10:56] LABS: BASOPHILS 0.1 % (0-2); EOSINOPHILS 2.2 % (0-7); HEMATOCRIT 43.1 % (36.0-48.0); HEMOGLOBIN 14.6 g/dL (12-16); IMMATURE GRANULOCYTES 0.1 % (0-5); LYMPHOCYTES 27.1 % (15-50); MCH 30.2 pg (26.0-34.0); MCHC 33.9 g/dL (31.0-37.0); MEAN PLATELET VOLUME 11.7 fL (7.4-10.4); MONOCYTES 7.9 % (2-11); NEUTROPHILS 62.6 % (40-80); PLATELET COUNT 246 10x3/uL (130-400); RBC 4.84 10x6/uL (4.00-5.40); RDW 13.2 % (11.5-14.5); WBC 7.3 10x3/uL (4.8-10.8)
[2019-01-31 10:57] LABS: APPEARANCE CLOUDY (CLEAR); BACTERIA MODERATE /hpf (NONE SEEN); BILIRUBIN NEGATIVE (NEGATIVE); COLOR YELLOW (YELLOW); EPITHELIAL CELLS 0-5 /hpf (0-5); GLUCOSE NEGATIVE (NEGATIVE); KETONE NEGATIVE (NEGATIVE); MUCUS <1+ /lpf (NONE SEEN); NITRITE NEGATIVE (NEGATIVE); PROTEIN TRACE mg/dL (NEGATIVE); RED CELLS - URINE 25-50 /hpf (0-5); SPECIFIC GRAVITY 1.015 (1.005-1.020); UROBILINOGEN NORMAL (NORMAL); WHITE CELLS - URINE 0-5 /hpf (0-5)
[2019-01-31 11:03] LABS: ALBUMIN 4.2 g/dL (3.4-5.0); ALKALINE PHOSPHATASE 77 U/L (46-116); ALT (SGPT) 30 U/L (10-68); BILIRUBIN - TOTAL 0.32 mg/dL (0.2-1.3); CALC OSMOLALITY 275 mosm/kg (275-300); CARBON DIOXIDE 27.6 mmol/L (21.0-32.0); CHLORIDE - SERUM 105 mmol/L (98-107); CREATININE - SERUM 0.9 mg/dL (0.6-1.3); GLUCOSE 89 mg/dL (74-106); POTASSIUM - SERUM 3.9 mmol/L (3.5-5.1); PROTEIN - SERUM 7.8 g/dL (6.4-8.2); SODIUM 139 mmol/L (136-145); UREA NITROGEN 11 mg/dL (7-18); eGFR NON AFRICAN AMERICAN 77 mL/min (90-120)
[2019-01-31 11:05] LABS: AMYLASE - SERUM 41 U/L (25-115); LIPASE 76 U/L (73-393); TROPONIN-I < 0.017 ng/mL (0.000-0.060)
[2019-01-31] MEDS ORDERED: ACETAMINOPHEN500 M1 PO (11:36)
[2019-01-31] MEDS ORDERED: KEFLEX500 MG PO (11:36)
[2019-01-31] MEDS ORDERED: CYCLOBENZAPRINE10 MG PO (11:36)
[2019-01-31 12:46] VITALS: BP 114/74
== END 2019-01-31 12:47 | disposition home or self-care (01) ==
LOC: D.ER 10:11
PROVIDERS: Family Medicine
DX: N39.0 Urinary tract infection, site not specified (principal); R10.9 Unspecified abdominal pain

== ENCOUNTER 2019-04-20 18:34 | Emergency (ER) | payer MEDICAID ==
[~2019-04-20] VITALS: Ht 157.5 cm; Wt 63.6 kg
[~2019-04-20 18:34] MED LIST changes: +ACETAMINOPHEN500 M1 PO; +BUSPAR 15 MG TA15 MG PO; +CYCLOBENZAPRINE10 MG PO; +KEFLEX500 MG PO; +REMERON30 MG PO
[2019-04-20 18:36] VITALS: Ht 157.5 cm; Wt 63.6 kg
[2019-04-20 19:36] LABS: BASOPHILS 0.2 % (0-2); EOSINOPHILS 0.9 % (0-7); HEMATOCRIT 41.8 % (36.0-48.0); HEMOGLOBIN 14.9 g/dL (12-16); IMMATURE GRANULOCYTES 0.2 % (0-5); LYMPHOCYTES 24.7 % (15-50); MCH 29.7 pg (26.0-34.0); MCHC 35.6 g/dL (31.0-37.0); MCV 83.3 fL (80.0-100.0); MEAN PLATELET VOLUME 11.8 fL (7.4-10.4); MONOCYTES 12.5 % (2-11); NEUTROPHILS 61.5 % (40-80); PLATELET COUNT 235 10x3/uL (130-400); RBC 5.02 10x6/uL (4.00-5.40)
[2019-04-20 20:06] LABS: ALBUMIN 4.8 g/dL (3.4-5.0); ALKALINE PHOSPHATASE 66 U/L (46-116); ALT (SGPT) 19 U/L (10-68); BILIRUBIN - TOTAL 0.79 mg/dL (0.2-1.3); CALC OSMOLALITY 284 mosm/kg (275-300); CALCIUM 9.6 mg/dL (8.5-10.1); CHLORIDE - SERUM 103 mmol/L (98-107); CREATININE - SERUM 0.9 mg/dL (0.6-1.3); GLUCOSE 85 mg/dL (74-106); POTASSIUM - SERUM 3.5 mmol/L (3.5-5.1); PROTEIN - SERUM 7.8 g/dL (6.4-8.2); SODIUM 143 mmol/L (136-145); UREA NITROGEN 14 mg/dL (7-18); eGFR NON AFRICAN AMERICAN 77 mL/min (90-120)
[2019-04-20] MEDS ORDERED: POLYTRIM EYE DR10 ML RIGHT EYE (21:23)
[2019-04-20 21:35] VITALS: BP 130/76
== END 2019-04-20 21:35 | disposition home or self-care (01) ==
LOC: D.ER 18:34
PROVIDERS: Family Medicine
DX: S05.01XA Injury of conjunctiva and corneal abrasion without foreign body, right eye, initial encounter (principal); Y04.2XXA Assault by strike against or bumped into by another person, initial encounter; F17.210 Nicotine dependence, cigarettes, uncomplicated

== ENCOUNTER 2019-05-07 12:07 | Emergency (ER) | payer MEDICAID ==
[~2019-05-07] VITALS: Ht 157.5 cm; Wt 68.2 kg
[~2019-05-07 12:07] MED LIST changes: +POLYTRIM EYE DR10 ML RIGHT EYE
[2019-05-07 12:32] VITALS: Ht 157.5 cm; Wt 68.2 kg
[2019-05-07 12:58] LABS: APPEARANCE CLEAR (CLEAR); BILIRUBIN NEGATIVE (NEGATIVE); COLOR STRAW (YELLOW); GLUCOSE NEGATIVE (NEGATIVE); HCG URINE NEGATIVE (NEGATIVE); KETONE NEGATIVE (NEGATIVE); NITRITE NEGATIVE (NEGATIVE); PROTEIN NEGATIVE (NEGATIVE); SPECIFIC GRAVITY 1.005 (1.005-1.020); UROBILINOGEN NORMAL (NORMAL)
[2019-05-07 13:01] LABS: BASOPHILS 0.1 % (0-2); EOSINOPHILS 1.1 % (0-7); HEMATOCRIT 41.1 % (36.0-48.0); HEMOGLOBIN 14.2 g/dL (12-16); IMMATURE GRANULOCYTES 0.1 % (0-5); LYMPHOCYTES 23.3 % (15-50); MCH 29.8 pg (26.0-34.0); MCHC 34.5 g/dL (31.0-37.0); MCV 86.2 fL (80.0-100.0); MONOCYTES 7.4 % (2-11); PLATELET COUNT 209 10x3/uL (130-400); RBC 4.77 10x6/uL (4.00-5.40); RDW 14.4 % (11.5-14.5)
[2019-05-07 13:04] LABS: UDS - AMPHET NEGATIVE QUAL (NEGATIVE); UDS - BARB NEGATIVE QUAL (NEGATIVE); UDS - BENZO NEGATIVE QUAL (NEGATIVE); UDS - COCAINE NEGATIVE QUAL (NEGATIVE); UDS - OPIATE NEGATIVE QUAL (NEGATIVE); UDS - PCP NEGATIVE QUAL (NEGATIVE); UDS - THC NEGATIVE QUAL (NEGATIVE)
[2019-05-07 13:16] LABS: ALBUMIN 3.5 g/dL (3.4-5.0); ALKALINE PHOSPHATASE 56 U/L (46-116); ALT (SGPT) 21 U/L (10-68); BILIRUBIN - TOTAL 0.17 mg/dL (0.2-1.3); CALC OSMOLALITY 281 mosm/kg (275-300); CARBON DIOXIDE 27.5 mmol/L (21.0-32.0); CHLORIDE - SERUM 108 mmol/L (98-107); CREATININE - SERUM 0.8 mg/dL (0.6-1.3); MAGNESIUM - SERUM 1.7 mg/dL (1.8-2.4); POTASSIUM - SERUM 4.3 mmol/L (3.5-5.1); PROTEIN - SERUM 6.5 g/dL (6.4-8.2); SODIUM 144 mmol/L (136-145); UREA NITROGEN 5 mg/dL (7-18); eGFR NON AFRICAN AMERICAN 88 mL/min (90-120)
[2019-05-07 13:17] LABS: GLUCOSE 68 mg/dL (74-106)
--- NOTE | 2019-05-07 14:35 | NUR ---
DR BENNETT NOTIFIED AND SITTER ORDERED. SITTER AT BEDSIDE. NOTIFIED CHARGE NURSE AND ATTENDING IN REGARDS TO ASSESSMENT FINDINGS. RESOURCES GIVEN TO PT AND SAFETY PLAN INITIATED.
[2019-05-07 17:03] VITALS: BP 126/70
== END 2019-05-07 17:05 ==
LOC: D.ER 12:07
PROVIDERS: Family Medicine
DX: R45.851 Suicidal ideations (principal); F32.9 Major depressive disorder, single episode, unspecified

== ENCOUNTER 2020-11-13 07:09 | Day surgery (SDC) | payer BC ==
[~2020-11-13] VITALS: Ht 157.5 cm; Wt 68.9 kg
[~2020-11-13 07:09] MED LIST changes: +CELEXA40 MG PO; +DULCOLAX STOOL100 MG PO; +TRILEPTAL300 MG PO; +XANAX1 MG PO
[2020-11-13 07:37] LABS: HEMATOCRIT 40.6 % (36.0-48.0); HEMOGLOBIN 13.9 g/dL (12-16); MCHC 34.2 g/dL (31.0-37.0); MCV 87.5 fL (80.0-100.0); MEAN PLATELET VOLUME 10.9 fL (7.4-10.4); RBC 4.64 10x6/uL (4.00-5.40); RDW 13.1 % (11.5-14.5); WBC 6.4 10x3/uL (4.8-10.8)
[2020-11-13 07:44] VITALS: Ht 157.5 cm; Wt 68.9 kg
--- NOTE | 2020-11-13 13:26 | NUR ---
PATIENT STATES PAIN IS NOW 9 WENT FROM 08/15 TO 05/16 AFTER 75 CC OF FENTANYL 25 MG DEM AND 2 MG OF DILAUDED. PATIENT IS AWAKE ON 3 L SAT 100% VSS. PATIENT IS GUARDING PERINEAL AREA AND GRIMACING WITH MOVEMENT.
--- NOTE | 2020-11-13 15:28 | NUR ---
1350 MEDICATED FOR PAIN 06/15. HISTORY OF ANXIETY AND BIPOLAR. 1430 IV REMOVED AND INSTRUCTIONS GIVEN.
== END 2020-11-13 14:45 | disposition home or self-care (01) ==
LOC: D.OPS 07:09
PROVIDERS: Anesthesiology; ATTEND Obstetrics & Gynecology Maternal & Fetal Medicine
DX: N81.6 Rectocele (principal); N94.10 Unspecified dyspareunia; R30.0 Dysuria; R33.9 Retention of urine, unspecified